=== PATIENT | female | born 1965 | race Caucasian/White ===

== ENCOUNTER 2017-08-05 17:35 | Emergency (ER) | payer BC ==
[2017-08-05 17:48] VITALS: BP 112/80
--- NOTE | 2017-08-05 17:58 | UC ---
Respiratory Complaint HPI - HPI Summary HPI Summary: C/O URI Sx x 5 days. Worsening with sinus pain and wheezing with hoarseness of the voice. - History of Current Complaint Chief Complaint: UCRespiratory Stated Complaint: RESPIRATORY COMPLAINT Time Seen by Provider: 08/05/17 17:51 Hx Obtained From: Patient Hx Last Menstrual Period: 7 years ago ?: No Onset/Duration: Sudden Onset, Lasting Days - 5, Worse Since - since onset Severity Initially: Mild Severity Currently: Moderate Character: Cough: Productive - green/ brown sputum. Alleviating Factors: Nothing Associated Signs And Symptoms: Positive: Wheezing, URI, Nasal Congestion, Hoarseness, Sinus Discomfort Related History: Seasonal Allergies - Allergies/Home Medications Allergies/Adverse Reactions: Allergies Allergy/AdvReac Type Severity Reaction Status Date / Time No Known Allergies Allergy Verified 08/05/17 17:40 Home Medications: Home Medications Dextromethorphan-Phenylephrine [Day Time Multi-Symptom Co 10-5-325 mg/15Ml] 1 liq PO PRN 08/05/17 [History] Mometasone/Formoter 200/5 MDI* [Dulera 200/5 MDI*] 2 puff INH BID 08/05/17 [ History Confirmed 08/05/17] Pseudoephedrine-Guaifenesin [Mucinex D 60-600 mg] 1 tab PO PRN 08/05/17 [History ] PMH/Surg Hx/FS Hx/Imm Hx Respiratory History: Asthma - Surgical History Surgical History: Yes Surgery Procedure, Year, and Place: . ANKLE SURGERY. BREAST REDUCTION - Family History Known Family History: Positive: Cardiac Disease, Hypertension Negative: Diabetes - Social History Occupation: Employed Full-time Lives: With Family Alcohol Use: Occasionally Substance Use Type: None Smoking Status (MU): Never Smoked Tobacco - Immunization History Most Recent Influenza Vaccination: FALL 2016 Review of Systems ENT: Sore Throat, Sinus Congestion, Sinus Pain/Tenderness Respiratory: Cough Neurological: Headache Is Patient Immunocompromised?: No All Other Systems Reviewed And Are Negative: Yes Physical Exam Triage Information Reviewed: Yes Appearance: No Pain Distress, Well-Nourished, Ill-Appearing Vital Signs: Initial Vital Signs Temp 98.9 F 08/05/17 17:42 Pulse 82 08/05/17 17:42 Resp 18 08/05/17 17:42 BP 112/80 08/05/17 17:42 Pulse Ox 98 08/05/17 17:42 Vital Signs Reviewed: Yes Eyes: Positive: Conjunctiva Clear ENT: Positive: Pharynx normal, Nasal congestion, TMs normal - , TM bulging - AD, TM dull - AD, Hoarse voice Neck exam: Normal Respiratory: Positive: Wheezing - diffuse expiratory wheeze with forced expiration. Cardiovascular Exam: Normal Musculoskeletal Exam: Normal Neurological Exam: Normal Psychological Exam: Normal Skin Exam: Normal UC Diagnostic Evaluation - Laboratory O2 Sat by Pulse Oximetry: 98 Respiratory Course/Dx - Differential Dx/Diagnosis Differential Diagnosis/HQI/PQRI: Asthma, Lower Resp Infection, Sinusitis Provider Diagnoses: Asthma with acute exacerbation. Acute URI. Chronic right serous otitis media. Acute sinusitis Discharge - Discharge Plan Condition: Stable Disposition: HOME Prescriptions: Albuterol HFA INHALER* [Ventolin HFA Inhaler*] 2 puff INH Q4H PRN #1 mdi PRN Reason: Wheezing Amoxicillin PO (*) [Amoxicillin 875 MG (*)] 875 mg PO BID #20 tab predniSONE TAB* [Deltasone TAB*] 20 mg PO DAILY #18 tab Patient Education Materials: Bronchospasm (ED), Prednisone (By mouth), Sinusitis (ED), Amoxicillin (By mouth) Additional Instructions: [employer] SINUS RINSE: CHECK OUT AT [facility] Saline nasal wash helps with mucous, allergies and congestion. It can be used up to twice a day or only as needed. Use lukewarm tap water. It does not have to be sterilized or distilled water. Do 1/3 on each side and snort out of both nostrils. Repeat the process with 1/6 of the bottle on each side with snorting in between to finish the solution in the bottle Do not blow your nose. NASAL SPRAYS AND DROPS: Afrin in the PUMP/ MIST bottle (Get generic 12 hours nasal decongestant spray). Tilt your head down and look at the floor while doing the spray. Decongestant nasal sprays and drops often give dramatic relief from congestion. They are often recommended for patients with sinus infection to assist with sinus drainage. Persons with high blood pressure should consult the doctor before using these nasal sprays. Afrin and Malik-Synephrine are common [id number] preparations. They should not be used for more than five days, as "rebound" congestion can occur - - the congestion flares as the drug wears off. A way of dealing with this rebound congestion problem is to medicate only one nostril each time, allowing the other nostril to recover from the medicine' s effects. When you no longer need the drug during the day, spray only one nostril each night. This helps you sleep well without severe rebound congestion. Call the doctor if you develop severe headache, palpitations, or chest pain. Follow up with your doctor in 2-3 weeks about the fluid in the ear. Consider adding a nasal steroid spray like OTC nasacort to be used after the Neilmed sinus rinse.
== END 2017-08-05 18:27 | disposition home or self-care (01) ==
LOC: UCCORT 17:35
DX: J45.901 Unspecified asthma with (acute) exacerbation (principal); H65.21 Chronic serous otitis media, right ear; J01.90 Acute sinusitis, unspecified
CPT/HCPCS: 99202; G0463